=== PATIENT | male | born 1995 | race Hispanic/Latino ===

== ENCOUNTER 2019-10-15 | Emergency (ER) | payer SELFPAY ==
[2019-10-15] MEDS ORDERED: ORPHENADRINE100 MG PO (12:07)
[2019-10-15] MEDS ORDERED: VOLTAREN - GENE75 MG PO (12:07)
== END 2019-10-15 12:15 | disposition home or self-care (01) | DRG 563 ==
DX: S39.012A Strain of muscle, fascia and tendon of lower back, initial encounter (principal); X50.0XXA Overexertion from strenuous movement or load, initial encounter; Y93.89 Activity, other specified; Y92.89 Other specified places as the place of occurrence of the external cause; Y99.0 Civilian activity done for income or pay

== ENCOUNTER 2021-08-04 08:09 | Emergency (ER) | payer SELFPAY ==
[~2021-08-04] VITALS: Ht 170.2 cm; Wt 68.0 kg
[~2021-08-04 08:09] MED LIST: ORPHENADRINE100 MG PO; VOLTAREN - GENE75 MG PO
[2021-08-04 11:15] VITALS: BP 130/78
== END 2021-08-04 11:15 | disposition home or self-care (01) | DRG 552 ==
LOC: ED 08:09
DX: M54.50 Low back pain, unspecified (principal); F17.200 Nicotine dependence, unspecified, uncomplicated

== ENCOUNTER 2022-11-29 12:17 | Emergency (ER) | payer SELFPAY ==
[2022-11-29] VITALS (12 sets, daily range): BP systolic 107–134; BP diastolic 66–83
[~2022-11-29] VITALS: Ht 170.2 cm; Wt 86.0 kg
[2022-11-29] MEDS ORDERED: NAPROXEN500 MG PO (16:11)
[2022-11-29] MEDS ORDERED: METHOCARBAMOL500 MG PO (16:11)
[2022-11-29] MEDS ORDERED: PREDNISONE10 MG PO (16:11)
== END 2022-11-29 16:35 | disposition home or self-care (01) | DRG 563 ==
LOC: ED 12:17
DX: S39.012A Strain of muscle, fascia and tendon of lower back, initial encounter (principal); X50.9XXA Other and unspecified overexertion or strenuous movements or postures, initial encounter